=== PATIENT | female | born 1970 | race Caucasian/White ===

== ENCOUNTER 2020-06-12 04:54 | Emergency (ER) | payer OTHER ==
[~2020-06-12] VITALS: Ht 162.6 cm; Wt 99.3 kg
[2020-06-12 04:57] VITALS: Ht 162.6 cm; Wt 99.3 kg
[2020-06-12 05:45] LABS: BASOPHIL % 0.6 % (0.2-1.3); PLATELET COUNT 209 x10^3mcL (179-408); RED CELL DISTRIBUTION WIDTH 13.6 % (12.3-17.7)
[2020-06-12 05:56] LABS: CALCIUM 8.8 mg/dL (8.5-10.1); CARBON DIOXIDE 26.6 mmol/L (21-32); CHLORIDE SERUM 99 mmol/L (98-107); CREATININE SERUM 0.6 mg/dL (0.6-1.0); GFR1 > 60 mL/min; GLUCOSE SERUM 306 mg/dL (74-106); SODIUM SERUM 134 mmol/L (136-145)
[2020-06-12 06:01] LABS: ALBUMIN 3.5 g/dL (3.4-5.0); ALKALINE PHOSPHATASE 161 U/L (46-116); ALT/SGPT 32 U/L (14-59); AST/SGOT 11 U/L (15-37); BILIRUBIN TOTAL 0.24 mg/dL (0.20-1.00)
[2020-06-12] MEDS ORDERED: MEDI-MECLIZINE25 MG PO (07:21)
[2020-06-12 07:23] VITALS: BP 117/69
== END 2020-06-12 07:43 | disposition home or self-care (01) ==
LOC: ED 04:54
PROVIDERS: Emergency Medicine
DX: E11.65 Type 2 diabetes mellitus with hyperglycemia (principal)
CPT/HCPCS: 82962; J7030

== ENCOUNTER 2020-06-24 03:01 | Emergency (ER) | payer OTHER ==
[~2020-06-24] VITALS: Ht 167.6 cm; Wt 99.8 kg
[~2020-06-24 03:01] MED LIST: MEDI-MECLIZINE25 MG PO
[2020-06-24 03:53] LABS: BASOPHIL % 0.5 % (0.2-1.3); PLATELET COUNT 237 x10^3mcL (179-408); RED CELL DISTRIBUTION WIDTH 12.9 % (12.3-17.7)
[2020-06-24 04:22] LABS: CALCIUM 9.4 mg/dL (8.5-10.1); CARBON DIOXIDE 24.1 mmol/L (21-32); CHLORIDE SERUM 96 mmol/L (98-107); CREATININE SERUM 0.7 mg/dL (0.6-1.0); GFR1 > 60 mL/min; GLUCOSE SERUM 370 mg/dL (74-106); POTASSIUM SERUM 3.7 mmol/L (3.5-5.1); SODIUM SERUM 134 mmol/L (136-145)
[2020-06-24 04:26] LABS: ALKALINE PHOSPHATASE 209 U/L (46-116); ALT/SGPT 24 U/L (14-59); AST/SGOT 7 U/L (15-37); BILIRUBIN TOTAL 0.26 mg/dL (0.20-1.00); LIPASE 165 IU/L (73-393); TOTAL PROTEIN, SERUM 7.9 g/dL (6.4-8.2)
[2020-06-24] MEDS ORDERED: REGLAN10 M1 PO (05:58)
[2020-06-24] MEDS ORDERED: MEDI-MECLIZINE25 MG PO (05:58)
[2020-06-24 07:20] VITALS: BP 122/66
== END 2020-06-24 07:20 | disposition home or self-care (01) ==
LOC: ED 03:01
PROVIDERS: Emergency Medicine
DX: E11.65 Type 2 diabetes mellitus with hyperglycemia (principal); R42 Dizziness and giddiness
CPT/HCPCS: 82962; J1200; J2765; J7030; J8597